=== PATIENT | male | born 1995 | race Caucasian/White ===

== ENCOUNTER 2022-05-21 11:27 | Emergency (ER) | payer MEDICAID, OTHER ==
[~2022-05-21] VITALS: Ht 160 cm; Wt 69.0 kg
[2022-05-21 11:31] VITALS: BP 110/74
[2022-05-21] MEDS ORDERED: TETANUS, DIPHTHERIA, PERTUSSIS VAC/PF 0.5ML (>10YR OLD) IM ONE ×2 (13:15→15:30)
[2022-05-21] MEDS ORDERED: LIDOCAINE HCL/PF 1% 10 MG/ML 5ML VIAL INFIL ONE (13:15)
[2022-05-21] MEDS ORDERED: BACITRACIN ZINC OINT UDPKT TOP ONE (13:15)
[2022-05-21] MEDS ORDERED: LIDOCAINE HCL/PF 1% 10 MG/ML 5ML VIAL INFIL NR (15:15)
[2022-05-21] MEDS ORDERED: BACITRACIN ZINC OINT UDPKT TOP NR (15:15)
[2022-05-21] MEDS ORDERED: DICL500C MT (16:40)
== END 2022-05-21 17:26 | disposition home or self-care (01) ==
LOC: ER 11:27
DX: S61.210A Laceration without foreign body of right index finger without damage to nail, initial encounter (principal); X58.XXXA Exposure to other specified factors, initial encounter; Y93.89 Activity, other specified; Y92.89 Other specified places as the place of occurrence of the external cause; Y99.8 Other external cause status; Z90.49 Acquired absence of other specified parts of digestive tract
CPT/HCPCS: 12002; 73140; 90471; 90715; 99283; J3490; Z7610